=== PATIENT | male | born 1945 | race Caucasian/White ===

== ENCOUNTER 2023-04-10 06:32 | Emergency (ER) | payer MEDICARE, BC ==
[2023-04-10 08:10] LABS: #Basophils 0.1 10x3/uL (0.0-0.2); #Eosinphils 0.2 10x3/uL (0.0-0.5); #Monocytes 0.7 10x3/uL (0.0-1.1); #Neutrophils 2.8 10x3/uL (1.5-8.4); %Basophils 0.9 % (0.0-2.0); %Eosinophils 3.6 % (0.0-6.0); %Lymphocytes 39.7 % (18.0-47.0); %Monocytes 11.6 % (0.0-10.0); %Neutrophils 43.9 % (40.0-75.0); Hematocrit 47.7 % (38.8-50.0); Hemoglobin 16.4 g/dL (13.5-17.5); Mean Corpuscular HGB CONC 34.4 g/dL (32.0-36.0); Mean Corpuscular Hemoglobin 33.1 pg (27.0-33.0); Mean Corpuscular Volume 96.4 fl (81.2-95.1); Mean Platelet Volume 10.8 fl (7.4-10.4); Platelet Count 158 10x3/uL (150-450); RBC Distribution Width 12.2 % (11.5-14.5); Red Blood Cell (RBC) Count 4.95 10x6/uL (4.32-5.72); White Blood Cell (WBC) Count 6.4 10x3/uL (3.5-10.5)
[2023-04-10 08:27] LABS: ALT (SGPT) 30 U/L (8-55); AST (SGOT) 30 U/L (5-34); Albumin 3.9 g/dL (3.4-4.8); Alkaline Phosphatase 64 U/L (40-110); Anion Gap 15 mmol/L (10-20); BUN (Urea Nitrogen) 11 mg/dL (8.4-25.7); Bilirubin, Total 0.8 mg/dL (0.2-1.2); Calc. Creatinine Clearance 0 mL/min (70-130); Calcium 8.6 mg/dL (7.8-10.44); Carbon Dioxide 22 mmol/L (23-31); Chloride 107 mmol/L (98-107); Estimated GFR 88; Globulin 2.3 g/dL (2.4-3.5); Glucose 99 mg/dL (83-110); Lipase 14 U/L (8-78); Potassium 4.2 mmol/L (3.5-5.1); Protein, Total 6.2 g/dL (5.8-8.1); Sodium 140 mmol/L (136-145)
== END 2023-04-10 11:55 | disposition home or self-care (01) ==
LOC: EEVIPCON 06:32 → CSHERS 06:32
DX: M79.602 Pain in left arm (principal)
CPT/HCPCS: 71045; 80053; 83690; 84484; 85025; 93005